=== PATIENT | female | born 1975 | race Caucasian/White ===

== ENCOUNTER 2017-02-18 05:45 | Day surgery (SDC) | payer BC ==
[~2017-02-18] VITALS: Ht 167.6 cm; Wt 89.8 kg
--- NOTE | 2017-02-18 09:41 | NUR ---
02/18/17 0941 Stacy Carbajal 9925-PATIENT ARRIVED TO PACU ON 10L MASK O2 SAT 100% SR. ORAL AIRWAY IN PLACE NONAROUSABLE. 3 LAP SITES TO ABDOMEN CDI. SERRANO CATHETER IN PLACE.
--- NOTE | 2017-02-18 10:33 | NUR ---
CALL LIGHT W/IN REACH. ASHISH MCDERMOTT ON WARM. ICED WATER GIVEN. SPOUSE @ BS.
[2017-02-18] MEDS ORDERED: MOTRIN IB200 MG PO (10:43)
[2017-02-18] MEDS ORDERED: PERCOCET 5-3251 EACH PO (10:43)
[2017-02-18] MEDS ORDERED: ZOFRAN ODT4 MG PO (10:43)
[2017-02-18] MEDS ORDERED: AYGESTIN5 MG PO (10:44)
--- NOTE | 2017-02-18 11:44 | NUR ---
PT REPORTS "PRESSURE" IN HER "ABDOMINAL AREA". PT HAS NOT TAKEN ANY DRINKS OF WATER AND SPOUSE REPORTS SHE HAS BEEN ASLEEP UNTIL THIS RN ENTERS THE ROOM. PT UNABLE TO RATE PAIN ON 1-10 SCALE AND DENIES DESIRE TO HAVE CATHETER OUT @ THIS TIME. ASHISH MCDERMOTT TURNED OFF.
--- NOTE | 2017-02-18 13:11 | NUR ---
SPOUSE REMAINS @ BS. PT RESTING W/EYES CLOSED. RR EVEN AND UNLABORED. PT WAKES EASILY WHEN RN ENTERS THE ROOM AND FALLS QUICKLY BACK TO SLEEP WHEN UNSTIMULATED.
--- NOTE | 2017-02-18 15:03 | NUR ---
PT AWAKE AND TALKING W/SPOUSE WHEN RN ENTERS THE ROOM. PT REQ CATHETER TO BE REMOVED. CATHETER REMOVED AFTER 5 ML BALLOON DEFLATED. PT TOLERATES CATHETER REMOVAL WELL AND 600 ML BRIGHT, YELLOW URINE NOTED TO OVERNIGHT BAG. PT DENIES DESIRE FOR FOOD @ THIS POINT. SPOUSE REMAINS @ BS.
--- NOTE | 2017-02-18 16:42 | NUR ---
PT UP TO BS TO ATTEMPT TO AMBULATE TO BR. PT GETS NAUSEATED W/MOVEMENT AND REQ TO BE BACK IN BED. SCDS BACK IN PLACE. PT GIVEN EMESIS BAG AND DRY HEAVES. PRN GIVEN AND PT REPORTS RELIEF AFTER PRN. DR. DIAZ IN TO SPEAK WITH PATIENT.
--- NOTE | 2017-02-18 17:10 | NUR ---
PATIENT ARRIVED TO MS UNIT. TRANSFERRED FROM STRETCHER TO BED WITH 1 ASSIST. IVF INFUSING ON PUMP. NO C/O PAIN. AT BEDSIDE. SCDS IN PLACE.
--- NOTE | 2017-02-18 17:19 | NUR ---
PT STANDS AND TRANSFERS HERSELF FROM THE STRETCHER TO THE BED AND DOES THAT WELL. VERBAL REPORT IS GIVEN AND QUESTIONS ARE ANSWERED. SPOUSE REMAINS @ BS.
--- NOTE | 2017-02-18 17:20 | NUR ---
VS OBTAINED. TOILETING OFFERED. PT HAS NOT VOIDED SINCE 1500 WHEN CATHETER WAS REMOVED. NO C/O PAIN OR NAUSEA. CALL ZEE IN REACH.
--- NOTE | 2017-02-18 17:52 | NUR ---
PATIENT HAS BEEN VERY DROWSY SINCE SHE ARRIVED TO THE MS UNIT. SHE DID RECIEVE A DOSE OF PHENERGAN AT 1645. ABD SOFT, SLIGHTLY DISTENDED ACCORDING TO PATIENT. BS ACTIVE, PT HAS NOT PASSED FLATUS. LUNGS CLEAR, HR REGULAR, NO EDEMA. PATIENT DENIES NEEDS, CALL LIGHT IN REACH.
--- NOTE | 2017-02-18 18:44 | NUR ---
ASSISTED PATIENT TO BATHROOM WITH 2 ASSIST. NO NAUSEA UPON STANDING.
--- NOTE | 2017-02-18 18:56 | NUR ---
PATIENT ABLE TO VOID. URINE APPEARS CONCENTRATED. PROVIDED PT WITH PERIPAD FOR SCANT AMOUNT OF BLOODY DISCHARGE. PATIENT DENIES FURTHER NEEDS. CALL LIGHT IN REACH.
--- NOTE | 2017-02-18 20:00 | NUR ---
WHITEBOARD UPDATED, ROOM TIDIED. PATIENT TAKEN TO BATHROOM. REFILLED ICE WATER.
--- NOTE | 2017-02-18 21:21 | NUR ---
PT LAYING IN BED, APPEARS A LITTLE DROWSY, BUT WAS AWAKE WHEN RN ENTERED ROOM. PT STATES "IM REALLY GOOD," WHEN ASKED ABOUT HER PAIN, REPORTS 2/10 AT THE MOMENT AND REFUSED PAIN MEDICATION. LAP SITE DRESSING ARE INTACT, SMALL AMOUNT OF DARK RED SHADOWING. PT UP TO BATHROOM TO VOID, SHE HAS BEEN VOIDING WELL PER DAYSHIFT RN REPORT. TOLERATED STANDBY ASSIST WELL, SLOW AND STEADY ON FEET. PT DENIES NAUSEA. GAVE JELLO, CRACKERS AND WATER TO START. CALL LIGHT IN REACH. PT HAS NO NEEDS AT THIS TIME.
--- NOTE | 2017-02-18 21:50 | NUR ---
ORDERED PT LUNCH BOX PER REQUEST. DENIES NAUSEA. NO FURTHER NEEDS. CALL LIGHT IN REACH.
--- NOTE | 2017-02-18 22:11 | NUR ---
pt called nurses station to notify nurse that iv pump was alarming. pt ate entire lunch box and denies nausea at this time. also has no pain. saline locked pt.
--- NOTE | 2017-02-19 00:01 | NUR ---
patient in bed asleep.
--- NOTE | 2017-02-19 00:12 | NUR ---
PT APPEARS TO BE SLEEPING. RR WNL AND UNLABORED.
--- NOTE | 2017-02-19 01:14 | NUR ---
PT IS SLEEPING AT THIS TIME.
--- NOTE | 2017-02-19 05:54 | NUR ---
V/S HAVE BEEN WDL SINCE I ASSUMED CARE OF THIS PT AT 0015. PT HAS DENIED PAIN AND N/V WELL. PT SLEPT MOST OF THIS SHIFT AND IS AMBULATING WELL. PT HAS NO VAGINAL BLEEDING PRESENT.
--- NOTE | 2017-02-19 06:39 | NUR ---
got patient apple juice
--- NOTE | 2017-02-19 07:30 | NUR ---
RECIEVED REPORT FROM [employer] ASSEMBLER NURSE. PATIENT RESTING IN BED WATCHING TV. DENIES PAIN, N/V. OBTAINED MENU SO THAT PATIENT MAY ORDER BREAKFSAT. DENIES FURTHER NEEDS. CALL LIGHT IN REACH.
--- NOTE | 2017-02-19 08:33 | NUR ---
HELPED PT TO BATHROOM, HE IS A 1PA AND DID WELL. HAD A BOWEL MOVEMENT. PT BACK TO BED AND SITTING ON THE SIDE OF BED, IS NEXT TO HIM. CALL LIGHT IN REACH. TOOK BREAKFAST TRAY OUT, ATE 30%
--- NOTE | 2017-02-19 09:54 | NUR ---
PATIENT RESTING IN BED. AT BEDSIDE. REVIEWED D/C PAPERWORK WITH PATIENT AND . QUESTIONS ANSWERED. DENY FURTHER QUESTIONS. SALINE LOCK REMOVED. PATIENT UP TO BATHROOM WITH SBA. NOTIFIED PATIENT TO CALL WHEN SHE IS READY TO GO!
--- NOTE | 2017-02-23 12:52 | OR ---
[facility] [address], [place] [address] Signed DATE OF OPERATION: 02/18/2017 SURGEON: Stacy Ambrocio MD SENIOR BOOKKEEPER: Jose A Galeano M.D. PREOPERATIVE DIAGNOSIS: History of endometriosis, recurrent pelvic pain. POSTOPERATIVE DIAGNOSIS: Diffuse pelvic endometriosis and pelvic pain. PROCEDURE: Total laparoscopic hysterectomy, bilateral salpingo-oophorectomy and cystoscopy. ANESTHESIA: General ET. ESTIMATED BLOOD LOSS: 100 mL. DRAINS: Arcos catheter. INDICATIONS AND FINDINGS: The patient is a 41-year-old female, 2, para 2, status post two prior C-sections, who has a history of endometriosis, which was diagnosed during laparoscopy about a year and a half ago. She was treated with laser fulguration as well as followed by a course of Lupron. She declined initially to try control pills, eventually we tried these, as she was having recurrent pain. However, she did not feel well on her control pills and was very poor at taking her medication. Because of her pelvic pain, she desired definitive treatment. At the time of surgery, she was found to have diffuse pelvic endometriosis. There were superficial implants over both of the ovaries. There was endometriosis in the right posterior broad ligament as well as the right pelvic sidewall. There were also powder hopper over the sigmoid. There were significant adhesions of the bladder to the anterior uterus given her prior sections. On cystoscopy, she was noted to have two ureteral orifices on the patient's right. There was only a single one on the left. Electronically Signed By: STACY AMBROCIO MD 02/23/17 1252 PATIENT NAME: KRAIG GUDNIO OPERATIVE REPORT DATE OF : 77 PHYSICIAN: STACY AMBROCIO MD REPORT #: [id number] REPORT IS CONFIDENTIAL AND NOT TO BE RELEASED WITHOUT AUTHORIZATION [facility] [address], [place] [address] Signed PROCEDURE IN DETAIL: The patient was prepped and draped in the dorsal lithotomy position. A weighted speculum was placed and the anterior lip of the cervix was visualized and grasped with a single-tooth tenaculum. The endocervical canal was then dilated and the VCare cannula was placed and the balloon inflated at the fundus. The tenaculum and speculum were removed and the cup was fitted over the cervix and the locking cap was fitted into place as well. Following this, gloves were changed and attention was directed above. The infraumbilical area was then injected with 0.5% Marcaine plain. An incision was made with a knife and then each layer was serially elevated and incised until the fascia was opened and identified. Stay sutures were placed on each side. The peritoneum was opened bluntly and the John cannula was placed and tied into place. Following this, the pelvis was visualized and the endometriosis seen and the decision was made to proceed with the planned procedure. The secondary ports were placed just below the level of the umbilicus fairly far laterally. These areas were transilluminated, injected with the Marcaine. Incision was made with a knife and the trocars placed under direct vision. The patient's left side was a 5 mm port and the patient's right was the Veress needle followed by the expanding port. Following this, the LigaSure [place] device was used to incise the patient's left tube, utero-ovarian ligament, and round ligament. There was quite a bit of scarring around the tube on that side as well. There was significant scarring anteriorly. A very careful dissection was done anteriorly to allow the scarring to come down off the uterus. The posterior peritoneum was also taken down. The uterine vessels were then skeletonized and coagulated multiple times and then divided. Attention was then directed to the patient's right side. Again, the patient's right tube, utero-ovarian pedicle, and round ligament were serially coagulated and divided. Dissection was done anteriorly, taking the scarred bladder off the anterior cervix and lower segment. The peritoneum was taken down posteriorly as well. The uterine vessels were skeletonized and coagulated multiple times and then divided. Further dissection was done posteriorly and anteriorly bringing the bladder completely off the anterior cervix so the cup could be visualized. There was no evidence of any injury to the bladder during that time. The posterior peritoneum was taken down as well and further dissection was done and the cup could be identified posteriorly as well. The abdomen was irrigated and it was felt that it was appropriate at this point to remove the specimen. The Sonicision device was used to remove the specimen from the cuff. This was started posteriorly, wrapped around the patient's left side anteriorly and then from posterior around the right side and anterior. Following this, the specimen was removed manually from the vagina. A lap tape was placed in the vagina enclosed in a glove to allow the pneumoperitoneum to reaccumulate. Attention was directed above after changing gloves again and the abdomen was copiously irrigated, inspected and there was little bit of bleeding around the patient's left uterine vessels and these were controlled with the LigaSure device. Following this, it was felt that the cuff should be able to be closed. The V-lock suture was used and using the endo-stitch, the vaginal cuff was closed. This was Electronically Signed By: STACY AMBROCIO MD 02/23/17 1252 PATIENT NAME: KRAIG GUDINO OPERATIVE REPORT DATE OF : 77 PHYSICIAN: STACY AMBROCIO MD REPORT #: [id number] REPORT IS CONFIDENTIAL AND NOT TO BE RELEASED WITHOUT AUTHORIZATION [facility] [address], [place] [address] Signed begun from the patient's right uterosacral ligament, taking care to incorporate the peritoneum as well as the vaginal mucosa and then coming through the vaginal mucosa and the cuff anteriorly. This was run from the patient's right to the patient's left uterosacral ligament and back to the center. Following this, the patient's tubes and ovaries were removed because of the extensive disease. The infundibulopelvic ligament on the patient's left side was identified and cauterized multiple times and then divided. The specimen was removed from the sidewall and the specimen dropped into the cul-de-sac. An Endoloop of 0 PDS was placed on the infundibulopelvic ligament, assure hemostasis. The same procedure was carried out on the patient's right side. The patient's infundibulopelvic ligament was identified and cauterized multiple times, divided and the specimen removed and dropped into the cul-de-sac. Another Endoloop using 0 PDS was placed over the infundibulopelvic ligament. Following this, the bag was introduced through the central port and both of the ovaries were placed in the bag and it was removed through the umbilical port intact. John was then replaced and the abdomen again inspected and hemostasis was noted. The pressure was turned down and there still appeared to be no evidence of bleeding. The procedure was then terminated. The instruments removed from the abdomen after allowing as much CO2 as possible to escape. The fascial incision of the umbilicus was reidentified and closed with a running suture of 0 Vicryl. The skin incisions were closed with subcuticular sutures of 3-0 Vicryl Rapide. Attention was then directed down below and cystoscopy was done. The Arcos catheter was removed and the cystoscope placed. The 30 degree scope was used. She did receive IV fluorescein as well. The dome of the bladder was seen to be intact with no evidence of any injury on careful inspection. The ureteral orifices were then identified and there were two ureteral orifices on the patient's right, fairly close together and both were seen to freely egress clear urine. There was a single ureteral orifice on the patient's left side and this was also seen to egress fluorescein stained urine. Following this, the bladder was drained and the Arcos catheter replaced. The procedure was terminated after removal of the vaginal lap tape. The patient was taken to the recovery room in good condition. MD AUGUSTO Reid/CARLYL /[id number] Electronically Signed By: STACY AMBROCIO MD 02/23/17 1252 PATIENT NAME: KRAIG GUDINO OPERATIVE REPORT DATE OF : 77 PHYSICIAN: STACY AMBROCIO MD REPORT #: [id number] REPORT IS CONFIDENTIAL AND NOT TO BE RELEASED WITHOUT AUTHORIZATION [address] [address] Signed cc: Jose A Galeano MD [facility] Electronically Signed By: STACY AMBROCOI MD 02/23/17 1252 PATIENT NAME: KRAIG GUDINO OPERATIVE REPORT DATE OF : 77 PHYSICIAN: STACY AMBROCIO MD REPORT #: [id number] REPORT IS CONFIDENTIAL AND NOT TO BE RELEASED WITHOUT AUTHORIZATION
== END 2017-02-19 10:00 | disposition home or self-care (01) ==
LOC: DS 05:45 → MS 17:10 → DS 02-19 10:00
PROVIDERS: Obstetrics & Gynecology
PROC: 0UT94ZZ Resection of Uterus, Percutaneous Endoscopic Approach (ICD-10-PCS; principal; 2017-02-18 06:45)
PROC: 0UT24ZZ Resection of Bilateral Ovaries, Percutaneous Endoscopic Approach (ICD-10-PCS; 2017-02-18 06:45)
PROC: 0UT74ZZ Resection of Bilateral Fallopian Tubes, Percutaneous Endoscopic Approach (ICD-10-PCS; 2017-02-18 06:45)
DX: N83.12 Corpus luteum cyst of left ovary (principal); N83.11 Corpus luteum cyst of right ovary; N83.8 Other noninflammatory disorders of ovary, fallopian tube and broad ligament; E66.9 Obesity, unspecified; E11.9 Type 2 diabetes mellitus without complications; Z88.0 Allergy status to penicillin; Z79.899 Other long term (current) drug therapy; Z98.890 Other specified postprocedural states; Z68.31 Body mass index [BMI] 31.0-31.9, adult
CPT/HCPCS: 00944; J0330; J0694; J1100; J1644; J1885; J2250; J2270; J2405; J2550; J2704; J2710; J2765; J3010; J7120